=== PATIENT | female | born 1965 | race American Indian/Alaskan Native ===

== ENCOUNTER 2020-08-28 06:07 | Day surgery (SDC) | payer BC ==
[~2020-08-28 06:07] MED LIST: ceFAZolin/Water 2 GM/20 ML 2 GM/20 ML SYRINGE IV NR
[2020-08-28] MEDS ORDERED: BUPIVACAINE/PF (0.5%) 5 MG/1 ML 10 ML VIAL INFILTRATI ONE ×2 (06:55→09:04)
[2020-08-28] MEDS ORDERED: HYDROmorphone 1 MG/1 ML INJ IV PRN ×2 (07:55)
[2020-08-28] MEDS ORDERED: ePHEDrine SULFATE 50 MG/1 ML INJ ONE (07:55)
--- NOTE | 2020-08-28 07:56 | Anesthesia Day of Surgery ---
Anesthesia Day of Surgery - Day of Surgery Patient Examined: Yes Patient H&P Reviewed: Yes Patient is NPO: Yes
--- NOTE | 2020-08-28 07:57 | Anesthesia Consultation ---
Anesthesia Consult and Med Hx Date of service: 08/28/20 - Airway Anesthetic Teeth Evaluation: Partials ROM Head & Neck: Adequate Mental/Hyoid Distance: Adequate Mallampati Class: Class I Intubation Access Assessment: Good - Pre-Operative Health Status ASA Pre-Surgery Classification: ASA2 Proposed Anesthetic Plan: General - Pulmonary Hx Smoking: Yes - Central Nervous System Hx Psychiatric Problems: No - Other Systems Hx Alcohol Use: Yes (Beer daily) Hx Cancer: No
[2020-08-28] MEDS ORDERED: ONDANSETRON 4 MG/2 ML INJ IV PRN (08:00)
[2020-08-28] MEDS ORDERED: LACTATED RINGERS 1,000 ML IV SCH (08:00)
[2020-08-28] MEDS ORDERED: fentaNYL 100 MCG/2 ML INJ ONE (08:01)
[2020-08-28] MEDS ORDERED: propofoL 200 MG/20 ML VIAL IV ONE (08:01)
[2020-08-28] MEDS ORDERED: PHENYLEPHRINE/NS 1,000 MCG/10 ML SYRINGE (OR USE) IV ONE (08:02)
[2020-08-28] MEDS ORDERED: LIDOCAINE MPF (2%) 20 MG/1 ML VIAL 5 ML ONE (08:02)
[2020-08-28] MEDS ORDERED: dexAMETHasone 20 MG/5 ML VIAL ONE (08:02)
[2020-08-28] MEDS ORDERED: GLYCOPYRROLATE 0.4 MG/2 ML INJ ONE (08:02)
[2020-08-28] MEDS ORDERED: ONDANSETRON 4 MG/2 ML INJ ONE (08:02)
[2020-08-28] MEDS ORDERED: MIDAZOLAM 2 MG/2 ML INJ ONE (08:31)
[2020-08-28] MEDS ORDERED: SODIUM CHLORIDE 0.9% IRR 1,500 ML BOTTLE IR ONE (09:04)
--- NOTE | 2020-08-28 10:35 | Post Anesthesia Evaluation ---
- Post Anesthesia Evaluation Patient Participated: Yes Airway Patent: Yes Stable Respiratory Function: Yes Nausea/Vomiting: No Temp > 96.8F: Yes Pain Manageable: Yes Adequeate Hydration: Yes Anesthesia Complications: No Block Receding Appropriately: Not Applicable Patient on Ventilator: No
[2020-08-28] MEDS ORDERED: oxyCODONE /ACETAMINOPHEN 5-325MG TAB ONE (10:41)
[2020-08-28] MEDS ORDERED: oxyCODONE /ACETAMINOPHEN 5-325MG TAB PO ONE (11:39)
[2020-08-28 11:45] VITALS: BP 121/64
--- NOTE | 2020-08-28 11:45 | Procedure Note ---
Date of procedure: 08/28/20 Pre-op diagnosis: Left carpal tunnel syndrome Post-op diagnosis: same Procedure: [Left] endoscopic carpal tunnel release Procedure The patient was brought to the OR placed in the OR table in supine position following induction and intubation anesthesia the patient's [left] upper extremity was prepped and draped in the usual sterile manner a timeout procedure was done to identify the patient and the correct operative site next the arm was exsanguinated followed by inflation of the pneumatic tourniquet to 250 mmHg a volar incision was made at the distal wrist crease this is taken down through skin and subcutaneous using loupe magnification the superficial flexor sheath was identified next the carpal canal was entered using dilators andthe arthroscope was inserted the patient was noted to have some tightness at the carpal canal and the transverse carpal transverse carpal ligament was identified with the arthroscope in line with the fourth metacarpal the knife blade assembly was elevated the ligament was released from distal to proximal care was taken to release the ligament as completely as possible a second look was done and it appeared that the ligament was completely released at this point The wound was irrigated and was closed in a standard routine fashion. Dressings were applied the patient tolerated the procedure there were no complications she was sent to postanesthesia recovery in stable condition Anesthesia: MAC Surgeon: LJ BANKS Estimated blood loss: minimal Pathology: none Condition: stable Disposition: PACU
== END 2020-08-28 12:30 | disposition home or self-care (01) ==
LOC: OR 06:07
PROVIDERS: ATTEND Orthopaedic Surgery
DX: G56.02 Carpal tunnel syndrome, left upper limb (principal); F17.210 Nicotine dependence, cigarettes, uncomplicated; Z79.899 Other long term (current) drug therapy; Z98.890 Other specified postprocedural states; Z72.89 Other problems related to lifestyle
CPT/HCPCS: 29848; J0690; J1100; J2250; J2370; J2405; J2704; J3010; J7120

== ENCOUNTER 2022-02-04 09:49 | Emergency (ER) | payer BC, MEDICAID ==
[2022-02-04 09:55] VITALS: BP 104/64
--- NOTE | 2022-02-04 10:52 | XRay Report ---
CHEST 2 VIEWS INDICATION / CLINICAL INFORMATION: sob. COMPARISON: None available. FINDINGS: SUPPORT DEVICES: None. HEART / MEDIASTINUM: No significant abnormality. LUNGS / PLEURA: No significant pulmonary or pleural abnormality. No pneumothorax. ADDITIONAL FINDINGS: No significant additional findings. IMPRESSION: 1. No acute findings. Signer Name: Kingsley Murguia MD Signed: 02/04/2022 10:48 AM Workstation Name: [id number]
[2022-02-04 11:28] LABS: Basophils % (Auto) 0.2 % (0.0-1.8); Eosinophils % (Auto) 0.2 % (0.0-4.3); Hematocrit 39.5 % (30.3-42.9); Hemoglobin 13.5 gm/dl (10.1-14.3); Lymphocytes # (Auto) 1.5 K/mm3 (1.2-5.4); Lymphocytes % (Auto) 11.8 % (13.4-35.0); Mean Corpuscular HGB Conc 34 % (30-34); Mean Corpuscular Volume 96 fl (79-97); Monocytes # (Auto) 1.8 K/mm3 (0.0-0.8); Monocytes % (Auto) 13.8 % (0.0-7.3); Platelet Count 238 K/mm3 (140-440); Red Cell Distribution Width 12.8 % (13.2-15.2)
[2022-02-04 12:08] LABS: Alanine Aminotransferase 14 units/L (7-56); Albumin 3.7 g/dL (3.9-5); Blood Urea Nitrogen 10 mg/dL (7-17); Hemolysis Index 4
[2022-02-04 12:21] LABS: BUN/Creatinine Ratio 14
[2022-02-04 12:45] LABS: Color,Urine Yellow (Yellow)
[2022-02-04 13:06] LABS: Bacteria,Urine 4+ /HPF (Negative); Mucus,Urine FEW /HPF
--- NOTE | 2022-02-05 10:51 | Electrocardiograph Report ---
[facility] Test Date: 2022-02-04 Test Time: 10:03:50 Pat Name: EJ ROMANO Department: Room: Gender: F [employer] [place] [employer]: KADY : 1965 Requested By: ED DOC Order Number: [id number] Reading MD: Yan Ann Measurements Intervals [place] Rate: 82 P: 72 NH: 118 QRS: 79 QRSD: 71 T: 70 QT: 368 QTc: 429 Interpretive Statements Sinus rhythm Probable left atrial enlargement Nonspecific T abnrm, anterolateral leads No previous ECG available for comparison Electronically Signed On 02-05-2022 10:51:26 EDT by Yan Ann
== END 2022-02-05 02:00 | disposition left against medical advice (07) ==
LOC: ED 09:49
DX: R10.9 Unspecified abdominal pain (principal); Z53.21 Procedure and treatment not carried out due to patient leaving prior to being seen by health care provider
CPT/HCPCS: 36415; 71046; 80053; 81001; 84484; 85025; 93005

== ENCOUNTER 2022-02-23 00:36 | Emergency (ER) | payer BC, MEDICAID ==
--- NOTE | 2022-02-23 02:05 | XRay Report ---
LEFT FOOT 3 VIEW(S) INDICATION / CLINICAL INFORMATION: PAIN COMPARISON: None available. FINDINGS: BONES / JOINT(S): No acute fracture or subluxation. Surgical change from distal first metatarsal oste otomy with a moderate hallux valgus deformity. No other significant degenerative osteoarthritis. SOFT TISSUES: No significant abnormality. ADDITIONAL FINDINGS: None. IMPRESSION: 1. No acute findings. Signer Name: Stefan Cohn MD Signed: 02/23/2022 2:01 AM Workstation Name: [email or web address]
--- NOTE | 2022-02-23 08:54 | Emergency Department Report ---
ED Lower Extremity HPI - General Chief Complaint: Extremity Problem,Nontraumatic Stated Complaint: BILATERAL SWOLLEN FOOT PAIN Time Seen by Provider: 02/23/22 08:17 Source: patient Mode of arrival: Ambulatory Limitations: No Limitations - History of Present Illness Initial Comments: Patient is a 56-year-old female that comes to the ER complaining of left foot pain. She states that she had a screw placed in the numerous years ago. She has had this pain for years but is worsening over the last couple weeks. Patient has no fall or known trauma. She does not follow-up with an orthopedic. X-rays ordered by triage was with no acute process. Patient is ambulatory. MD Complaint: other -: Gradual, year(s) Severity scale (0 -10): 3 Improves With: nothing Worsens With: movement - Related Data Previous Rx's Medication Instructions Recorded Last Taken Type HYDROcodone/APAP 5-325 [[place] 1 each PO Q6HR PRN #20 tablet 10/23/20 Unknown Rx 5-325 mg TAB] Allergies Allergy/AdvReac Type Severity Reaction Status Date / Time No Known Allergies Allergy Verified 08/26/20 11:41 ED Review of Systems ROS: Stated complaint: BILATERAL SWOLLEN FOOT PAIN Other details as noted in HPI Comment: All other systems reviewed and negative ED Past Medical Hx - Past Medical History Previous Medical History?: Yes Hx Hypertension: No Hx Liver Disease: No Hx Renal Disease: No - Surgical History Past Surgical History?: Yes - Family History Family history: no significant - Social History Smoking Status: Unknown if ever smoked Substance Use Type: None - Medications Home Medications: Home Medications Medication Instructions Recorded Confirmed Last Taken Type HYDROcodone/APAP 5-325 [[place] 1 each PO Q6HR PRN #20 tablet 10/23/20 Unknown Rx 5-325 mg TAB] ED Physical Exam - General Limitations: No Limitations General appearance: alert, in no apparent distress - Head Head exam: Present: atraumatic, normocephalic - Eye Eye exam: Present: normal appearance - ENT ENT exam: Present: mucous membranes moist - Neck Neck exam: Present: normal inspection - Respiratory Respiratory exam: Present: normal lung sounds bilaterally. Absent: respiratory distress - Cardiovascular Cardiovascular Exam: Present: regular rate, normal rhythm. Absent: systolic murmur, diastolic murmur, rubs, gallop - GI/Abdominal GI/Abdominal exam: Present: soft, normal bowel sounds - Extremities Exam Extremities exam: Present: normal inspection - Back Exam Back exam: Present: normal inspection - Neurological Exam Neurological exam: Present: alert, oriented X3 - Psychiatric Psychiatric exam: Present: normal affect, normal mood - Skin Skin exam: Present: warm, dry, intact, normal color. Absent: rash ED Course Vital Signs 02/23/22 02/23/22 00:39 09:18 Temperature 98.0 F 98.2 F Pulse Rate 93 H 90 Respiratory 18 20 Rate Blood Pressure 122/65 Blood Pressure 132/78 [Left] O2 Sat by Pulse 98 98 Oximetry ED Lower Extremity MDM - Radiology Data Radiology results: report reviewed, image reviewed No acute process - Medical Decision Making Vital Signs 02/23/22 02/23/22 00:39 09:18 Temperature 98.0 F 98.2 F Pulse Rate 93 H 90 Respiratory 18 20 Rate Blood Pressure 122/65 Blood Pressure 132/78 [Left] O2 Sat by Pulse 98 98 Oximetry X-ray with no acute process. Patient ambulatory. She is neurovascularly intact. Foot is warm. There is no swelling. No abrasion or laceration. Patient educated on follow-up with orthopedics for chronic foot pain. Patient discharged home with discharge plan of care including diet, activity, medications and follow-up. She verbalizes understanding of plan of care. - Differential Diagnosis Rule out migration of device Critical care attestation.: If time is entered above; I have spent that time in minutes in the direct care of this critically ill patient, excluding procedure time. ED Disposition Clinical Impression: Foot pain Disposition: 01 HOME / SELF CARE / HOMELESS Is pt being admited?: No Does the pt Need Aspirin: No Condition: Stable Instructions: Foot Pain Additional Instructions: MOTRIN OR TYLENOL OVER THE COUNTER FOR PAIN FOLLOW UP WITH ORTHO [facility] REFERRAL BELOW Referrals: LJ BANKS MD [Staff Physician] - 3-5 Days Forms: Work/School Release Form(ED) Time of Disposition: 08:53
[2022-02-23 09:28] VITALS: BP 132/78
== END 2022-02-23 09:41 | disposition home or self-care (01) ==
LOC: ED 00:36
DX: M79.672 Pain in left foot (principal); Z98.890 Other specified postprocedural states; Z79.899 Other long term (current) drug therapy
CPT/HCPCS: 99283